=== PATIENT | female | born 1965 | race Caucasian/White ===

== ENCOUNTER 2020-04-09 18:42 | Emergency (ER) | payer OTHER ==
[~2020-04-09] VITALS: Ht 162.6 cm; Wt 81.7 kg
[2020-04-09 19:56] LABS: ABSOLUTE NEUTROPHILS 3.3 thou/uL (1.4-8.2); BASOPHILS 1.3 % (0.0-2.0); HEMATOCRIT 39.7 % (37.0-47.0); HEMOGLOBIN 12.9 gm/dL (12.0-15.0); LYMPHOCYTES 36.6 % (24.0-44.0); MCH 26.9 pg (26.0-34.0); MCHC 32.4 g/dL (28.0-37.0); MCV 82.9 fL (80.0-100.0); MONOCYTES 6.3 % (1.0-8.0); POLYS 48.8 % (36.0-66.0); RBC 4.79 mil/uL (4.20-5.00); RDW 12.7 % (10.5-14.5); WBC 6.9 thou/uL (4.0-11.0)
[2020-04-09 20:05] LABS: CALCIUM 8.6 mg/dL (8.5-10.1); CREATININE 0.7 mg/dL (0.6-1.0); POTASSIUM 3.8 mmol/L (3.5-5.1)
[2020-04-09 20:11] LABS: ALBUMIN 3.9 g/dL (3.4-5.0); TOTAL BILIRUBIN 0.3 mg/dL (0.2-1.0); TOTAL PROTEIN 6.9 g/dL (6.4-8.2)
[2020-04-09 20:31] LABS: PLATELET COUNT 309 thou/uL (150-400)
[2020-04-09 22:57] VITALS: BP 100/62
--- NOTE | 2020-04-10 07:08 | EKG ---
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: denilson : 1965 Requested By: Mike dOell Order Number: [id number] MD: Uche Pepe Measurements Intervals [place] Rate: 204 P: 0 WA: QRS: 90 QRSD: 129 T: QT: QTc: 0 Interpretive Statements No further analysis attempted - not enough leads could be measured Artifact in lead(s) I,aVR,aVL and baseline wander in lead(s) aVR,aVL No previous ECG available for comparison Electronically Signed On 04-10-2020 7:08:02 [facility] by Uche Pepe [email or web address] <ELECTRONICALLY SIGNED> By: Uche Pepe MD, [facility] 04/10/20707 56 56 Uche Pepe MD, FACC /EPI
--- NOTE | 2020-04-10 15:35 | EKG ---
[place] [place] [address] ELECTROCARDIOGRAM REPORT Name: CHANDA GUTIÉRREZ 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 : 1965 Requested By: Mike Odell Order Number: [id number] MD: Uche Pepe Measurements Intervals [place] Rate: 63 P: 39 IL: 219 QRS: -16 QRSD: 108 T: 7 QT: 437 QTc: 448 Interpretive Statements Sinus rhythm Prolonged [place] interval Borderline left axis deviation Low voltage, precordial leads RSR' in V1 or V2, probably normal variant Baseline wander in lead(s) V3 Compared to ECG 04/09/2020 19:57:27 First degree AV block now present Low QRS voltage now present RSR' in V1 or V2 now present Electronically Signed On 04-10-2020 15:34:58 [employer] by Uche Pepe [email or web address] <ELECTRONICALLY SIGNED> By: Uche Pepe MD, FACC 04/10/20 1534 39 39 Uche Pepe MD, FAC /EPI
== END 2020-04-09 22:58 | disposition home or self-care (01) ==
LOC: EDBD 18:42 → ER 18:42
PROVIDERS: Physician Assistant
DX: F10.129 Alcohol abuse with intoxication, unspecified (principal); Z88.0 Allergy status to penicillin; Y90.7 Blood alcohol level of 200-239 mg/100 ml